=== PATIENT | male | born 1935 | race Caucasian/White ===

== ENCOUNTER 2017-02-28 16:32 | Inpatient (IN) | payer MEDICARE, OTHER ==
[~2017-02-28] VITALS: Ht 185.4 cm; Wt 87.3 kg
--- NOTE | 2017-02-28 16:38 | NUR ---
PT bib ra from home for fall and LEFT hip pain on blood thinNERS. GOWNED PT . AWAITING MD ORDERS.
[2017-02-28] MEDS ORDERED: MORPHINE SULFATE INJ 4 MG/ML DISP.SYRIN ONE ×3 (16:56→19:26)
[2017-02-28] MEDS ORDERED: ONDANSETRON HCL/PF 4 MG/2 ML VIAL ONE (16:56)
[2017-02-28] MEDS ORDERED: IV NS 0.9% 1,000 ML ONE (16:57)
[2017-02-28] MEDS ORDERED: IV SET PRIMARY 1 EA INFUS.SET MC ONE (16:57)
[2017-02-28] MEDS ORDERED: IV NS 0.9% 1,000 ML BAG IV ONE (17:00)
[2017-02-28] MEDS ORDERED: ONDANSETRON HCL/PF 4 MG/2 ML VIAL IVP ONE (17:00)
[2017-02-28] MEDS ORDERED: MORPHINE SULFATE INJ 2 MG/ML DISP.SYRIN IV ONE ×2 (17:00→19:30)
[2017-02-28 17:03] LABS: BASOPHILS # (AUTO) 0.3 /CMM (0.0-0.2); BASOPHILS % (AUTO) 2.8 % (0.0-2.0); EOSINOPHILS % (AUTO) 0.4 % (0.0-6.0); HEMATOCRIT 41 % (39-51); HEMOGLOBIN 13.8 g/dL (13.5-17.5); LYMPHOCYTES # (AUTO) 0.8 /CMM (0.8-4.8); LYMPHOCYTES % (AUTO) 7.1 % (20.0-44.0); MEAN CORPUSCULAR HEMOGLOBIN 36 PG (26.0-33.0); MEAN CORPUSCULAR HGB CONC 34 g/dl (31.0-36.0); MEAN CORPUSCULAR VOLUME 105 fL (80-96); MONOCYTES # (AUTO) 0.5 /CMM (0.1-1.30); MONOCYTES % (AUTO) 4.5 % (2.0-12.0); NEUTROPHILS # (AUTO) 10.2 /CMM (1.8-8.9); NEUTROPHILS % (AUTO) 85.2 % (43.0-81.0); PLATELET COUNT (AUTO) 166 /CMM (150-450); RDW COEFFICIENT OF VARIATION 13.3 (11.5-15.0); RED BLOOD CELL COUNT(AUTO) 3.87 MIL/uL (4.5-6.0); WHITE BLOOD COUNT (AUTO) 11.8 K/uL (4.3-11.0)
[2017-02-28] MEDS ORDERED: ASPI1CPM PO (17:09)
[2017-02-28] MEDS ORDERED: SIMV20TA6 PO (17:09)
[2017-02-28] MEDS ORDERED: LEVO200T8 PO (17:09)
[2017-02-28] MEDS ORDERED: VIT1CAPS44 PO (17:11)
[2017-02-28 17:13] LABS: CALCIUM, SERUM 8.6 mg/dL (8.5-10.1); CARBON DIOXIDE 24 mmol/L (21-32); CHLORIDE 105 mmol/L (98-107); CREATININE 1.4 mg/dL (0.6-1.3); GLUCOSE 106 mg/dL (74-106); POTASSIUM 4.3 mmol/L (3.5-5.1); SODIUM SERUM 140 mmol/L (136-145); UREA NITROGEN, BLOOD 24 mg/dL (7-18)
--- NOTE | 2017-02-28 17:13 | NUR ---
PT HAS LAC #16 IV ACCESS ENVELOPE FOLDER. BLOOD SAMPLE COLLECTED SENT TO LAB
--- NOTE | 2017-02-28 17:14 | NUR ---
RN LABOR DELIVERY AT BEDSIDE
[2017-02-28 17:24] LABS: INR 1.6 (0.87-1.13); PROTHROMBIN TIME 17.1 SECS (9.5-12.7)
[2017-02-28] MEDS ORDERED: MORPHINE SULFATE INJ 10 MG/ML DISP.SYRIN IV ONE (18:00)
--- NOTE | 2017-02-28 18:00 | NUR ---
PT TAKEN TO CT VIA GENA
--- NOTE | 2017-02-28 19:10 | NUR ---
PT REPORT RECIVED FROM STEPHANIE MCCOY, PT IN IN BED, PT FAMILY MEMEBRS AT BEDSIDE, PT ON MONITOR, WILL CONTINUE TO MONITOR.
--- NOTE | 2017-02-28 19:12 | NUR ---
CALLED [facility] NEPHROLOGY CLOTH REELER DR. BERNABE WAS PAGED.
--- NOTE | 2017-02-28 19:17 | NUR ---
GAVE REPORT TO [facility] FOR POOL
--- NOTE | 2017-02-28 19:25 | NUR ---
CALLED ORTHO DOCTOR CLINICAL TRAINING COORDINATOR VILLA NATARAJAN WAS PAGED.
[2017-02-28 21:00] VITALS: BP 144/87
[2017-02-28] MEDS ORDERED: IV NS 0.9% 1,000 ML IV PRN (21:00)
[2017-02-28] MEDS: HEPARIN SODIUM, PORCINE 5000 UNITS/1 ML VIAL SQ SCH (21:00)
[2017-02-28] MEDS ORDERED: ACETAMINOPHEN 325 MG TABLET PO PRN (21:00)
[2017-02-28] MEDS ORDERED: ONDANSETRON HCL/PF 4 MG/2 ML VIAL IV PRN (21:00)
--- NOTE | 2017-02-28 21:00 | NUR ---
MS RN NOTES RECEIVED PT FROM ER, IN STABLE CONDITION. A/O X 4, VERBALLY RESPONSIVE. AT BED SIDE. NO DISTRESS, NO SOB NOTED. IV SITE ON LAC INTACT AND PATENT, NO S/S OF INFILTRATION NOTED. ABDOMEN IS SOFT AND NON DISTENDED. BODY ASSESSMENT DONE, DENIES ANY PAIN OR DISCOMFORT AT THIS TIME. ALL NEEDS ATTENDED AND MET. KEPT COMFORTABLE. CALL LIGHT WITHIN WITHIN REACH. WILL CONT TO MONITOR.
[2017-02-28] MEDS ORDERED: IV SET PRIMARY PUMP SET 1 EA INFUS.SET MC ONE (21:42)
--- NOTE | 2017-03-01 06:40 | NUR ---
MS RN NOTES PT IN BED, RESTING COMFORTABLY AT THIS TIME. AROUSES EASILY. A/O X 4, VERBALLY RESPONSIVE. NO DISTRESS, NO SOB NOTED. IV SITE ON LAC INTACT AND PATENT, NO S/S OF INFILTRATION NOTED. ABDOMEN IS SOFT AND NON DISTENDED. PT IS CONTINENT , ABLE TO URINATE IN THE URINAL WITHOUT DIFFICULTY. DENIES ANY PAIN OR DISCOMFORT AT THIS TIME. ALL NEEDS ATTENDED AND MET. KEPT COMFORTABLE. CALL LIGHT WITHIN WITHIN REACH. WILL ENDORSE TO NEXT SHIFT FOR POOL.
[2017-03-01 07:26] LABS: BASOPHILS % (AUTO) 0.1 % (0.0-2.0); EOSINOPHILS % (AUTO) 0.1 % (0.0-6.0); HEMATOCRIT 37 % (39-51); HEMOGLOBIN 12.8 g/dL (13.5-17.5); LYMPHOCYTES # (AUTO) 0.9 /CMM (0.8-4.8); LYMPHOCYTES % (AUTO) 9.8 % (20.0-44.0); MEAN CORPUSCULAR HEMOGLOBIN 36 PG (26.0-33.0); MEAN CORPUSCULAR HGB CONC 34 g/dl (31.0-36.0); MEAN CORPUSCULAR VOLUME 105 fL (80-96); MONOCYTES # (AUTO) 0.4 /CMM (0.1-1.30); MONOCYTES % (AUTO) 4.4 % (2.0-12.0); NEUTROPHILS # (AUTO) 8.2 /CMM (1.8-8.9); NEUTROPHILS % (AUTO) 85.6 % (43.0-81.0); PLATELET COUNT (AUTO) 126 /CMM (150-450); RDW COEFFICIENT OF VARIATION 14.2 (11.5-15.0); RED BLOOD CELL COUNT(AUTO) 3.54 MIL/uL (4.5-6.0); WHITE BLOOD COUNT (AUTO) 9.6 K/uL (4.3-11.0)
[2017-03-01 08:00] VITALS: BP 129/63
--- NOTE | 2017-03-01 08:00 | NUR ---
m/s stave cutting supervisor: initial assessment received pt in bed awake, a/ox4. no c/o pain or any discomfort at this time. pt unable to move from side to side due to pain and unable to assess pt's back side. instructed to call for assistance. no apparent distress noted. will continue to monitor.
[2017-03-01 08:16] LABS: CARBON DIOXIDE 24 mmol/L (21-32); CHLORIDE 107 mmol/L (98-107); CREATININE 1.6 mg/dL (0.6-1.3); GLUCOSE 109 mg/dL (74-106); MAGNESIUM 1.9 mg/dL (1.8-2.4); PHOSPHORUS 4.8 mg/dL (2.5-4.9); POTASSIUM 4.3 mmol/L (3.5-5.1); SODIUM SERUM 142 mmol/L (136-145); UREA NITROGEN, BLOOD 32 mg/dL (7-18)
[2017-03-01] MEDS: HEPARIN SODIUM, PORCINE 5000 UNITS/1 ML VIAL SQ SCH ×2 (08:17→21:33)
[2017-03-01] MEDS: MORPHINE SULFATE INJ 2 MG/ML DISP.SYRIN IV PRN ×2 (11:46→23:27)
--- NOTE | 2017-03-01 11:46 | NUR ---
m/s inspector ball points: notes c/o 06/11 left hip pain, medicated with morphine 2mg ivp given by rn. family remains at bedside. will continue to monitor.
--- NOTE | 2017-03-01 12:16 | NUR ---
m/s terminal press operator: notes pt verbalized relief of pain. family remains at bedside. pt having lunch. instructed to call for assistance. will continue to monitor.
[2017-03-01] MEDS: LEVOTHYROXINE SODIUM 100 MCG TABLET PO SCH (12:41)
[2017-03-01] MEDS: MULTIVITAMIN/LUTEIN/MINERALS 1 TAB PO SCH (12:41)
--- NOTE | 2017-03-01 14:30 | NUR ---
m/s quality control assistant: md visit seen and examined by dr. kaiser with orders. orders acknowledged. informed md pt is already on heparin sq already with order to d'c lovenox. order carried out and acknowledged.
[2017-03-01] MEDS ORDERED: ENOXAPARIN SODIUM 30 MG/0.3 ML DISP.SYRIN SQ SCH (14:31)
--- NOTE | 2017-03-01 14:37 | NUR ---
m/s arbor press operator: ortho consult tj carranza) at bedside examining pt at this time.
--- NOTE | 2017-03-01 15:15 | NUR ---
m/s grain operations manager: notes received order for nwb to ble. pt made aware and verbalized understanding. instructed to call for assistance. will continue to monitor.
[2017-03-01 16:00] VITALS: BP 92/47
[2017-03-01] MEDS: HYDROCODONE/APAP 5/325MG 1 EACH TABLET PO PRN (18:07)
--- NOTE | 2017-03-01 18:07 | NUR ---
m/s athletic coordinator: notes c/o 03/11 left hip pain, medicated with norco 5-325mg po as ordered. at bedside. instructed to call for assistance. will monitor.
--- NOTE | 2017-03-01 18:40 | NUR ---
m/s skein spooler: notes pt sounds asleep at this time with at bedside. needs attended. no apparent distress noted. will continue to monitor.
--- NOTE | 2017-03-01 19:30 | NUR ---
MS RN NOTES PT STABLE AT THIS TIME, NO DISTRESS, NO SOB AT THIS TIME. CALL LIGHT WITHIN REACH. WILL CONT TO MONITOR. CALL LIGHT WITHIN REACH.
--- NOTE | 2017-03-01 19:30 | NUR ---
MS RN NOTES RECEIVED PT IN BED. AWAKE, WATCHING TV AT THIS TIME. A/O X 4. VERBALLY RESPONSIVE. AT BED SIDE. IV SITE ON LAC INTACT AND PATENT, IVF INFUSING WELL. PT WITH NO S/S OF BLEEDING AT THIS TIME. DENIES ANY PAIN OR DISCOMFORT. ABLE TO URINATE FREELY WITH YELLOW URINE. ALL NEEDS ATTENDED AND MET . KEPT COMFORTABLE. CALL LIGHT WITHIN REACH. WILL CONT TO MONITOR.
[2017-03-01 20:00] VITALS: BP 106/53
[2017-03-01] MEDS: IV NS 0.9% 1,000 ML IV PRN (21:31)
[2017-03-01] MEDS: SIMVASTATIN 20 MG TABLET PO SCH (21:31)
[2017-03-01 22:00] VITALS: BP 106/53
[2017-03-02] MEDS: MORPHINE SULFATE INJ 2 MG/ML DISP.SYRIN IV PRN ×2 (06:12→15:50)
--- NOTE | 2017-03-02 07:30 | NUR ---
MS RN NOTES PT IN BED. AWAKE. A/O X 4. VERBALLY RESPONSIVE. NO DISTRESS, NO SOB NOTED. IV SITE ON LAC INTACT AND PATENT, IVF INFUSING WELL. PT WITH NO S/S OF BLEEDING AT THIS TIME. DENIES ANY PAIN OR DISCOMFORT. ABLE TO URINATE FREELY WITH YELLOW URINE. ALL NEEDS ATTENDED AND MET . KEPT COMFORTABLE. SAFETY PRECAUTIONS OBSERVED. CALL LIGHT WITHIN REACH. ENDORSED TO NEXT SHIFT FOR POOL.
--- NOTE | 2017-03-02 07:40 | NUR ---
RECEIVED PT. ALERT AND ORIENTED X4,[place],NO COMPLAINTS OFFERED.
[2017-03-02 08:00] VITALS: BP 131/66
[2017-03-02 08:15] LABS: BASOPHILS % (AUTO) 0.2 % (0.0-2.0); EOSINOPHILS # (AUTO) 0.2 /CMM (0.0-0.7); EOSINOPHILS % (AUTO) 1.6 % (0.0-6.0); HEMATOCRIT 36 % (39-51); HEMOGLOBIN 12.2 g/dL (13.5-17.5); LYMPHOCYTES # (AUTO) 1.1 /CMM (0.8-4.8); LYMPHOCYTES % (AUTO) 11.4 % (20.0-44.0); MEAN CORPUSCULAR HEMOGLOBIN 36 PG (26.0-33.0); MEAN CORPUSCULAR HGB CONC 34 g/dl (31.0-36.0); MEAN CORPUSCULAR VOLUME 107 fL (80-96); MONOCYTES # (AUTO) 0.6 /CMM (0.1-1.30); MONOCYTES % (AUTO) 6.4 % (2.0-12.0); NEUTROPHILS # (AUTO) 7.9 /CMM (1.8-8.9); NEUTROPHILS % (AUTO) 80.4 % (43.0-81.0); PLATELET COUNT (AUTO) 106 /CMM (150-450); RDW COEFFICIENT OF VARIATION 14.6 (11.5-15.0); RED BLOOD CELL COUNT(AUTO) 3.41 MIL/uL (4.5-6.0); WHITE BLOOD COUNT (AUTO) 9.8 K/uL (4.3-11.0)
[2017-03-02 08:30] LABS: CALCIUM, SERUM 7.9 mg/dL (8.5-10.1); CARBON DIOXIDE 25 mmol/L (21-32); CHLORIDE 105 mmol/L (98-107); CREATININE 1.3 mg/dL (0.6-1.3); GLUCOSE 104 mg/dL (74-106); MAGNESIUM 1.9 mg/dL (1.8-2.4); PHOSPHORUS 2.3 mg/dL (2.5-4.9); POTASSIUM 3.8 mmol/L (3.5-5.1); SODIUM SERUM 140 mmol/L (136-145); UREA NITROGEN, BLOOD 29 mg/dL (7-18)
[2017-03-02] MEDS: MULTIVITAMIN/LUTEIN/MINERALS 1 TAB PO SCH (08:55)
[2017-03-02] MEDS: LEVOTHYROXINE SODIUM 100 MCG TABLET PO SCH (08:55)
[2017-03-02] MEDS: HEPARIN SODIUM, PORCINE 5000 UNITS/1 ML VIAL SQ SCH ×2 (08:57→21:19)
--- NOTE | 2017-03-02 10:30 | NUR ---
FAMILY IN TO VISIT.
[2017-03-02] MEDS: HYDROCODONE/APAP 5/325MG 1 EACH TABLET PO PRN ×2 (11:33→21:30)
--- NOTE | 2017-03-02 12:30 | NUR ---
IV LEAKING,REMOVED,RESTARTED LT. FOREARM.
[2017-03-02 16:00] VITALS: BP 142/80
[2017-03-02] MEDS ORDERED: K PHOS NEUTRAL 250 MG TABLET PO ONE (16:00)
--- NOTE | 2017-03-02 16:30 | NUR ---
FAMILY CALLING IN TO CHECK ON PT.
--- NOTE | 2017-03-02 18:26 | NUR ---
MEDICATED X 2 FOR PAIN WITH NORCO AND MORPHINE WITH GOOD EFFECT.
--- NOTE | 2017-03-02 19:45 | NUR ---
PT IS IN BED A/O X3. NO SIGNS OF SOB OR DISTRESS. IV ACCESS ON LEFT FOREARM, PATENT AND INTACT. CALL LIGHT WITHIN REACH. WILL CONTINUE TO MONITOR PT
[2017-03-02 20:00] VITALS: BP 154/65
--- NOTE | 2017-03-02 20:00 | NUR ---
MS RN TEMP PT TEMP 100.0 COOLING MEASURES WERE INITIATED. BLANKETS WERE REMOVED, ICE PACKS WERE PLACED UNDER THE ARMS
--- NOTE | 2017-03-02 21:00 | NUR ---
PT REFUSED IV FLUIDS. EDUCATED ON THE IMPORTANCE AND PT STILL REFUSED. WILL CONTINUE TO MONITOR
--- NOTE | 2017-03-02 21:00 | NUR ---
RN TEMP TEMP IS NOW 98.0 WILL CONTINUE TO MONITOR PT
[2017-03-02] MEDS: SIMVASTATIN 20 MG TABLET PO SCH (21:19)
[2017-03-02] MEDS ORDERED: ropiniROLE 0.5 MG TABLET PO SCH (22:00)
[2017-03-02 22:30] VITALS: BP 154/65
--- NOTE | 2017-03-03 06:37 | NUR ---
MS RN CLOSING NOTES PATIENT IN BED, NO APPARENT DISTRESS NOTED. ALL DUE MEDS GIVEN. NEEDS ALL ATTENDED, ANTICIPATED AND MET. ENDORSED TO DAY SHIFT.
[2017-03-03] MEDS: HYDROCODONE/APAP 5/325MG 1 EACH TABLET PO PRN ×2 (06:59→16:07)
--- NOTE | 2017-03-03 07:37 | NUR ---
RN OPEN NOTES RECEIVED REPORT FROM HEATING EQUIPMENT REPAIRER NURSE. PATIENT IS IN BED. ALERT AND ORIENTED TO NAME, PLACE AND TIME. NO SIGNS AND SYMPTOMS OF DISTRESS. PAIN LEVEL 5/10, NORCO ADMINISTERED BY HEATING EQUIPMENT REPAIRER NURSE AT 0640. BED IN LOW POSITION, LOCKED AND TWO SIDES RAIL ARE UP. WILL CONTINUE TO MONITOR AND ASSESS PATIENT THROUGH OUT MY SHIFT
[2017-03-03 08:00] VITALS: BP 116/65
[2017-03-03] MEDS ORDERED: ROPI0.5T PO (08:07)
[2017-03-03] MEDS ORDERED: HYDR-3326 PO (08:07)
[2017-03-03] MEDS ORDERED: HEPA50008 SQ (08:07)
[2017-03-03] MEDS: LEVOTHYROXINE SODIUM 100 MCG TABLET PO SCH (08:14)
[2017-03-03] MEDS: MULTIVITAMIN/LUTEIN/MINERALS 1 TAB PO SCH (08:14)
[2017-03-03] MEDS: IV NS 0.9% 1,000 ML IV PRN (08:14)
[2017-03-03 08:15] LABS: CALCIUM, SERUM 8.2 mg/dL (8.5-10.1); CARBON DIOXIDE 24 mmol/L (21-32); CHLORIDE 102 mmol/L (98-107); GLUCOSE 109 mg/dL (74-106); PHOSPHORUS 3.1 mg/dL (2.5-4.9); POTASSIUM 3.5 mmol/L (3.5-5.1); SODIUM SERUM 138 mmol/L (136-145); UREA NITROGEN, BLOOD 15 mg/dL (7-18)
[2017-03-03] MEDS: HEPARIN SODIUM, PORCINE 5000 UNITS/1 ML VIAL SQ SCH (08:15)
--- NOTE | 2017-03-03 16:15 | NUR ---
CHEMICAL PLANT WORKER NOTES PATIENT DISCHARGE ORDERS RECEIVED AND BOB OUT. PATIENT IS BEING DISCHARGED IN A STABLE CONDITION. NO SIGNS AND SYMPTOMS OF DISTRESS. DISCHARGE INSTRUCTIONS GAVE TO PATIENT AND HIS . PATIENT AND VERBALIZED UNDERSTANDING. IV SITE REMOVED. ID BAND REMOVED. PATIENT WAS TRANSPORTED TO A [facility] FACILITY, [facility], VIA AMBULANCE MEDS RESPONDE. CALLED [facility] AND GAVE REPORT TO DARIUS ALVAREZ WHOM WILL ACCEPT THE PATIENT AT THE FACILITY.
[2017-03-06 11:12] LABS: CALCITRIOL VIT D,1, 25 DIHYDRO 44.2 pg/mL (19.9-79.3)
== END 2017-03-03 16:30 | DRG 535 ==
LOC: ER 16:33 → MED 20:57
PROVIDERS: ADMIT Internal Medicine Nephrology; ATTEND Internal Medicine Nephrology
DX: S32.445A Nondisplaced fracture of posterior column [ilioischial] of left acetabulum, initial encounter for closed fracture (principal); N17.0 Acute kidney failure with tubular necrosis; R04.2 Hemoptysis; S32.592A Other specified fracture of left pubis, initial encounter for closed fracture; S32.049A Unspecified fracture of fourth lumbar vertebra, initial encounter for closed fracture; S32.435A Nondisplaced fracture of anterior column [iliopubic] of left acetabulum, initial encounter for closed fracture; S32.472A Displaced fracture of medial wall of left acetabulum, initial encounter for closed fracture; X58.XXXA Exposure to other specified factors, initial encounter; Y93.89 Activity, other specified; Y92.89 Other specified places as the place of occurrence of the external cause; Y99.9 Unspecified external cause status; E03.9 Hypothyroidism, unspecified; E86.0 Dehydration; Z86.73 Personal history of transient ischemic attack (TIA), and cerebral infarction without residual deficits; W18.30XA Fall on same level, unspecified, initial encounter; S30.0XXA Contusion of lower back and pelvis, initial encounter; M51.36 Other intervertebral disc degeneration, lumbar region; M16.0 Bilateral primary osteoarthritis of hip; Z79.899 Other long term (current) drug therapy; C61 Malignant neoplasm of prostate
CPT/HCPCS: 36415; 71010-TC; 71250-TC; 72192-TC; 73502; 80048-TC; 82306; 82652; 83735-TC; 83970; 84100-TC; 85025-TC; 85730-TC; 87081-TC; 97001-TC; A4606; J1644; J2270; J2405; J7030; Z7610

== ENCOUNTER 2017-03-15 23:03 | Inpatient (IN) | payer MEDICARE, OTHER ==
[~2017-03-15] VITALS: Ht 177.8 cm; Wt 85.4 kg
[~2017-03-15 23:03] MED LIST: ASPI1CPM PO; HEPA50008 SQ; HYDR-3326 PO; LEVO200T8 PO; ROPI0.5T PO; SIMV20TA6 PO; VIT1CAPS44 PO
--- NOTE | 2017-03-15 23:10 | NUR ---
to bed 3 bib [facility] ambulance c/o constipation x3 days. pt aaox4 no acute distress noted, resp even and unlabored. pt family members at bedside. pending er md godinez.
--- NOTE | 2017-03-15 23:29 | NUR ---
BALDEMARB xray done.
--- NOTE | 2017-03-16 00:01 | NUR ---
MAYURI result received. mahamed vidal aware.
--- NOTE | 2017-03-16 00:03 | NUR ---
er md at bedside to re-eval pt. pt resting comfortably, no acute distress noted, resp even and unlabored.
[2017-03-16 00:17] LABS: BASOPHILS % (AUTO) 0.1 % (0.0-2.0); HEMATOCRIT 33 % (39-51); HEMOGLOBIN 11.2 g/dL (13.5-17.5); LYMPHOCYTES # (AUTO) 0.8 /CMM (0.8-4.8); LYMPHOCYTES % (AUTO) 5.7 % (20.0-44.0); MEAN CORPUSCULAR HEMOGLOBIN 35 PG (26.0-33.0); MEAN CORPUSCULAR HGB CONC 34 g/dl (31.0-36.0); MEAN CORPUSCULAR VOLUME 104 fL (80-96); MONOCYTES # (AUTO) 0.7 /CMM (0.1-1.30); MONOCYTES % (AUTO) 4.7 % (2.0-12.0); NEUTROPHILS # (AUTO) 12.7 /CMM (1.8-8.9); NEUTROPHILS % (AUTO) 89.5 % (43.0-81.0); PLATELET COUNT (AUTO) 295 /CMM (150-450); WHITE BLOOD COUNT (AUTO) 14.2 K/uL (4.3-11.0)
[2017-03-16] MEDS ORDERED: ERGO400C PO (00:17)
[2017-03-16] MEDS ORDERED: HYDR-3326 PO (00:17)
[2017-03-16] MEDS ORDERED: PROT946L PO (00:17)
[2017-03-16] MEDS ORDERED: WHEA1POW6 PO (00:17)
[2017-03-16] MEDS ORDERED: IV SET PRIMARY 1 EA INFUS.SET MC ONE ×2 (00:18→01:18)
[2017-03-16] MEDS ORDERED: IV NS 0.9% 1,000 ML ONE ×2 (00:18→01:18)
[2017-03-16 00:27] LABS: CALCIUM, SERUM 8.2 mg/dL (8.5-10.1); CARBON DIOXIDE 21 mmol/L (21-32); CHLORIDE 98 mmol/L (98-107); CREATININE 2.3 mg/dL (0.6-1.3); GLUCOSE 135 mg/dL (74-106); POTASSIUM 5.3 mmol/L (3.5-5.1); SODIUM SERUM 131 mmol/L (136-145); UREA NITROGEN, BLOOD 51 mg/dL (7-18)
[2017-03-16] MEDS ORDERED: IV NS 0.9% 1,000 ML BAG IV ONE ×2 (00:30→01:30)
[2017-03-16 00:32] LABS: PROTHROMBIN TIME 10.7 SECS (9.5-12.7)
[2017-03-16 00:33] LABS: ALANINE AMINOTRANSFERASE 31 U/L (12-78); ALBUMIN 2.7 g/dL (3.4-5.0); ALKALINE PHOSPHATASE 160 U/L (46-116); ASPARTATE AMINOTRANSFERASE 28 U/L (15-37); BILIRUBIN,DIRECT 0.1 mg/dL (0.0-0.2); BILIRUBIN,TOTAL 0.6 mg/dL (0.2-1.0); LIPASE 129 U/L (73-393); TOTAL PROTEIN, SERUM 7.2 g/dL (6.4-8.2)
[2017-03-16 00:37] LABS: TROPONIN I 1.844 ng/mL (0.00-0.056)
--- NOTE | 2017-03-16 01:06 | NUR ---
pt back from radiology for ct abd/pelvis/ pending ct result.
--- NOTE | 2017-03-16 01:39 | NUR ---
pt still unable to provide urine sample at this time. pt states "give me half hour and i will try to give you urine". mahamed vidal made aware.
--- NOTE | 2017-03-16 01:56 | NUR ---
BED 109
[2017-03-16] MEDS ORDERED: LIDOCAINE 2% JEL UROJET 10 ML MM ONE ×2 (02:16→03:30)
--- NOTE | 2017-03-16 02:45 | NUR ---
16FR YBARRA CATHETER INSERTED USING STERILE TECHNIQUE. OUTPUT 2400ML. JOSE COLOR. URINE SAMPLE COLLECTED AND SENT TO LAB.
[2017-03-16] MEDS ORDERED: ASPIRIN 325 MG TABLET PO ONE (03:00)
[2017-03-16 03:05] LABS: BILIRUBIN,URINE NEGATIVE (NEGATIVE); BLOOD, URINE 2+ Ery/uL (NEGATIVE); COLOR,URINE YELLOW (YELLOW); KETONES,URINE NEGATIVE (NEGATIVE); LEUKOCYTE ESTERASE ,URINE TRACE (NEGATIVE); NITRITE, URINE NEGATIVE (NEGATIVE); PROTEIN,URINE NEGATIVE (NEGATIVE); UGLUCOSE NEGATIVE (NEGATIVE); UROBILINOGEN,URINE 0.2 EU/dL (0.2)
[2017-03-16 03:09] LABS: APPEARANCE,URINE HAZY (CLEAR)
[2017-03-16 03:14] LABS: BACTERIA,URINE None seen /HPF (None Seen); SQUAMOUS EPITHELIAL CELL,UR Rare /HPF (None Seen); WBC,URINE 25-30 /HPF (0-3)
--- NOTE | 2017-03-16 03:18 | NUR ---
DR. MEEKS PAGED PER ER ORDER.
[2017-03-16] MEDS ORDERED: DOCUSATE SODIUM 250 MG CAPSULE PO SCH (03:30)
[2017-03-16] MEDS ORDERED: ASPIRIN 325 MG TABLET ONE (03:34)
[2017-03-16] MEDS ORDERED: DOCUSATE SODIUM LIQ 100 MG/10 ML UDC ONE (03:34)
--- NOTE | 2017-03-16 03:35 | NUR ---
REPORT CALLED TO TELE 1 RN FRANCISCO. PENDING HOSPITAL ADMISSION.
[2017-03-16 04:00] VITALS: BP 99/54
--- NOTE | 2017-03-16 05:15 | NUR ---
DR MEEKS PAGED FOR THE ADMISSION ORDERS
--- NOTE | 2017-03-16 06:29 | NUR ---
RN NOTES: CALLED DR. MEEKS @ [facility] [phone] FOR ADMISSION ORDERS, SPOKE WITH MYRON. TO PAGE DOCTOR AGAIN. WAITING FOR CALL BACK
--- NOTE | 2017-03-16 06:54 | NUR ---
RN NOTES: CALLED DR MEEKS FOR THE THIRD TIME @0645, SPOKE WITH MEME HOLMAN MD. WAITING FOR RETURN CALL.
--- NOTE | 2017-03-16 07:00 | NUR ---
MIKI INITIAL NOTES RECEIVED PT IN BED, CONFUSED, ABLE TO FOLLOW COMMANDS, ANSWERS SIMPLE QUESTIONS, PT IS ON 2L NC, SATING 100%, NO S/S OF RESP.DISTRESS OR SOB NOTED AT THIS TIME, PT IS ON TELE MONITOR SHOWING SR W/PVC @70BPM, NO C/O CHEST PAIN OR DISCOMFORT AT THIS TIME, PT HAS F/C DRAINING YELLOW URINE TO GRAVITY, PT HAS R HAND #20G, SL, C/D/I/PATENT, FLUSHING WELL, NO S/S OF INFECTION/ INFILTRATION NOTED AT THIS TIME, DAUGHTER IS AT BEDSIDE, EXTREMELY NEEDY AND CONCERNED, PT IS CURRENTLY NPO AT THIS TIME, PT IS NON AMBULATORY D/T PELVIC FRACTURE PER DAUGHTER, ALL SAFETY MEASURES IN PLACE AT ALL TIMES, CALL LIGHT WITHIN EASY REACH, WILL MONITOR PT CLOSELY FOR CHANGES
--- NOTE | 2017-03-16 07:01 | NUR ---
ADMISSION NOTE; A 81 YRS MALE ADMITTED FROM ER WITH THE DX OF NON STEMI , A/O X 3 WITH PERIODS OF CONFUSION. BREATHING EVEN AND UNLABORED ON 2 LPM VIA NC. TELE MONITOR SHOWING SR WITH OCCASIONALLY PVCs HR 80 . RIGHT HAND PERIPHERAL IV 20 G INTACT AND PATENT . F/C INTACT AND DRAINING CLEAR URINE. MEDICAL HX PROVIDED BY PT AND HIS . BELONGINGS CHECKED . SKIN ASSESSMENT DONE, PHOTO TAKEN AND PLACED IN THE CHART . BM X 2 . AWAITING ADMISSION ORDER, PAGED X 3 . ENDORSED TO NEXT SHIFT RN FOR CONTINUITY OF CARE.
--- NOTE | 2017-03-16 07:42 | NUR ---
MIKI RN NOTES CALLED [facility] FOR ADMISSION ORDERS, PAGED DR. MEEKS, AWAITING FOR ADMISSION ORDERS.
[2017-03-16 08:00] VITALS: BP 100/49
--- NOTE | 2017-03-16 08:19 | NUR ---
MIKI NOTE DR. MEEKS RETURNED CALL, ORDERS INPUTTED AND ACK.
[2017-03-16] MEDS ORDERED: IV SET PRIMARY PUMP SET 1 EA INFUS.SET MC ONE ×2 (08:54→11:31)
[2017-03-16] MEDS: LEVOTHYROXINE SODIUM 100 MCG TABLET PO SCH (09:07)
[2017-03-16] MEDS: IV NS 0.9% 1,000 ML IV PRN ×2 (09:17→22:30)
[2017-03-16] MEDS ORDERED: HYDROCODONE/APAP 5/325MG 1 EACH TABLET PO PRN (09:30)
[2017-03-16] MEDS: CHOLECALCIFEROL (VITAMIN D 3) 400 UNIT TABLET PO SCH (09:30)
[2017-03-16] MEDS: PROSOURCE / PROSTAT (PYXIS) 30 ML UDC PO SCH (09:30)
[2017-03-16] MEDS ORDERED: AGGRENOX(ASA/DIPYRIDAMOLE) 1 CAP CPMP.12HR PO SCH (10:00)
[2017-03-16 10:25] LABS: MAGNESIUM 2.4 mg/dL (1.8-2.4); PHOSPHORUS 5.6 mg/dL (2.5-4.9)
[2017-03-16 12:00] VITALS: BP 98/56
[2017-03-16 12:23] LABS: THYROID STIMULATING HORMONE 8.351 uIU/mL (0.358-3.74)
[2017-03-16] MEDS: HEPARIN INFUSION/D5W 500 ML IV PRN (12:31)
[2017-03-16] MEDS: BENEFIBER 4 GM 1 EA PACKET PO SCH ×2 (12:31→21:23)
[2017-03-16] MEDS ORDERED: LEVALBUTEROL HCL NEB 1.25 MG/0.5 ML VIAL.NEB NEB PRN (15:00)
[2017-03-16] MEDS ORDERED: ALBUTEROL HALF STRENGTH 1.25 MG/3 ML VIAL.NEB NEB PRN (15:30)
--- NOTE | 2017-03-16 15:36 | NUR ---
MIKI NOTES AWARE OF TROP
[2017-03-16 16:00] VITALS: BP 95/50
[2017-03-16] MEDS ORDERED: SECONDARY IV SET 1 EA INFUS.SET MC ONE (16:34)
[2017-03-16] MEDS: CEFTRIAXONE 1 G in IV D5W 50 ML IV SCH (16:41)
--- NOTE | 2017-03-16 16:41 | NUR ---
MIKI NOTE MANUALLY ADMINISTERED MEDICATION, SCANNER IS BROKE, NOTIFIED IT
--- NOTE | 2017-03-16 18:47 | NUR ---
MIKI CLOSING NOTES PT REMAINED STABLE DURING SHIFT, ALL MEDICATIONS GIVEN, ALL ORDERS CARRIED OUT, PT KEPT CLEAN AND DRY, IV REMAINS C/D/I/PATENT, INFUSING HEPARIN @ 1302 UNITS/HR, NS @75ML/HR, F/C INTACT/PATENT DRAINING URINE WELL, ALL SAFETY MEASURES IN PLACE AT ALL TIMES, CALL LIGHT WITHIN EASY REACH, WILL GIVE REPORT TO PM RN FOR POOL
[2017-03-16 20:00] VITALS: BP 101/54
--- NOTE | 2017-03-16 20:00 | NUR ---
MIKI RN NOTE PT IN BED AWAKE. A/O X 2, CONFUSED AT TIMES. ON 2L VIA N/C O2 SAT 97%. NO SOB, NO DISTRESS OR DISCOMFORT NOTED. DENIES PAIN. ON TELE SR WITH PAC AND PVC HR 66. F/C INTACT AND PATENT DRAINING YELLOWISH COLOR URINE. NS @ 75 ML/HR INFUSING WELL, NO S/S OF INFILTRATION NOTED ON RT HAND. ALSO HEPARIN DRIP INFUSING AT 26.04 ML/HR RFA #20 G, NO S/S OF INFILTRATION NOTED. NO S/S OF ANY BLEEDING NOTED. PT WITH BRUISING NOTED BILATERAL HIPS. KEPT HIM HEEL OFFLOADED. SIDE RAILS UP X 3 AND CALL LIGHT WITHIN REACH. VSS. CONTINUE TO MONITOR HIM.
--- NOTE | 2017-03-16 20:03 | NUR ---
MIKI RN NOTE LAB [facility] CALLED AND INFORMED TROP LEVEL 1.573 WHICH IS TRENDING DOWN. CONTINUE TO MONITOR HIM.
[2017-03-16 20:08] LABS: INR 0.99 (0.87-1.13); PROTHROMBIN TIME 10.6 SECS (9.5-12.7)
--- NOTE | 2017-03-16 20:30 | NUR ---
MIKI RN NOTE PT WITH INR RESULT CAME BUT NO PTT. INFORMED LAB AND WAITING FOR PTT RESULT.
--- NOTE | 2017-03-16 20:56 | NUR ---
MIKI RN NOTE PTT RESULT CAME 47 PER PROTOCOL NO CHANGE IN DRIP. CONTINUE WITH 1302 HEPARIN UNITS /HR. CHARGE NURSE INFORMED.
[2017-03-16] MEDS ORDERED: HEPARIN SODIUM, PORCINE 5000 UNITS/1 ML VIAL SQ SCH (21:00)
[2017-03-16] MEDS: HYDROCODONE/APAP 5/325MG 1 EACH TABLET PO PRN (21:22)
[2017-03-16] MEDS: ropiniROLE 0.5 MG TABLET PO SCH (21:23)
[2017-03-16] MEDS: SIMVASTATIN 20 MG TABLET PO SCH (21:23)
--- NOTE | 2017-03-16 21:25 | NUR ---
MIKI RN NOTE PT C/O PAIN IN LT HIP AREA 04/11, NORCO 2 TABS PO GIVEN FOR PAIN, ALSO GIVEN DUE MEDS. IVF AND HEPARIN DRIP INFUSING WELL, NO S/S OF INFILTRATION NOTED.
--- NOTE | 2017-03-16 22:25 | NUR ---
MIKI RN NOTE PAIN SUBSIDED /. PT FALLING ASLEEP, IVF INFUSING WELL, NO S/S OF INFILTRATION NOTED. CONTINUE TO MONITOR HIM.
[2017-03-17] VITALS: BP 109/62
[2017-03-17 04:00] VITALS: BP 120/72
--- NOTE | 2017-03-17 06:39 | NUR ---
MIKI RN NOTE PT IN BED AWAKE. NO DISTRESS OR DISCOMFORT NOTED. DENIES PAIN. HEPARIN DRIP INFUSING WELL AND ALSO NS INFUSING WELL, NO S/S OF INFILTRATION NOTED. ON TELE SB WITH PAC AND PVC HR 53. F/C INTACT AND PATENT DRAINING YELLOWISH COLOR URINE. SIDE RAILS UP X 2 AND CALL LIGHT WITHIN REACH. WILL ENDORSE TO DAY SHIFT NURSE FOR CONTINUE TO CARE.
[2017-03-17 07:04] LABS: BASOPHILS % (AUTO) 0.3 % (0.0-2.0); EOSINOPHILS # (AUTO) 0.1 /CMM (0.0-0.7); EOSINOPHILS % (AUTO) 1.2 % (0.0-6.0); HEMATOCRIT 30 % (39-51); HEMOGLOBIN 10.2 g/dL (13.5-17.5); LYMPHOCYTES # (AUTO) 1.5 /CMM (0.8-4.8); LYMPHOCYTES % (AUTO) 15.1 % (20.0-44.0); MEAN CORPUSCULAR HEMOGLOBIN 36 PG (26.0-33.0); MEAN CORPUSCULAR HGB CONC 34 g/dl (31.0-36.0); MEAN CORPUSCULAR VOLUME 106 fL (80-96); MONOCYTES # (AUTO) 0.6 /CMM (0.1-1.30); MONOCYTES % (AUTO) 6.3 % (2.0-12.0); NEUTROPHILS # (AUTO) 7.9 /CMM (1.8-8.9); NEUTROPHILS % (AUTO) 77.1 % (43.0-81.0); PLATELET COUNT (AUTO) 230 /CMM (150-450); RDW COEFFICIENT OF VARIATION 14.3 (11.5-15.0); RED BLOOD CELL COUNT(AUTO) 2.86 MIL/uL (4.5-6.0); WHITE BLOOD COUNT (AUTO) 10.2 K/uL (4.3-11.0)
--- NOTE | 2017-03-17 07:15 | NUR ---
RN INITIAL NOTE PATIENT RECEIVED IN BED. PATIENT SLEEPING, EASILY AROUSED. ABLE TO MAKE NEEDS KNOWN. NO S/S OF PAIN OR DISCOMFORT. RESPIRATIONS ARE EVEN AND UNLABORED. NO S/S OF RESPIRATORY DISTRESS OR SOB. SINUS RHYTHM ON TELE MONITOR. HEART RATE IN THE 50'S. YBARRA CATHETER DRAINING TO GRAVITY. IV SITE FLUSHED AND PATENT. SKIN IS WARM AND DRY TO TOUCH. SAFETY PRECAUTIONS IMPLEMENTED. BED IN LOCKED, LOW POSITION WITH TWO SIDE RAILS UP. CALL LIGHT WITHIN EASY REACH. WILL CONTINUE TO MONITOR.
[2017-03-17 07:30] LABS: CALCIUM, SERUM 7.9 mg/dL (8.5-10.1); CARBON DIOXIDE 22 mmol/L (21-32); CHLORIDE 105 mmol/L (98-107); CREATININE 1.3 mg/dL (0.6-1.3); GLUCOSE 104 mg/dL (74-106); MAGNESIUM 2.1 mg/dL (1.8-2.4); PHOSPHORUS 3.4 mg/dL (2.5-4.9); POTASSIUM 4.1 mmol/L (3.5-5.1); SODIUM SERUM 137 mmol/L (136-145); UREA NITROGEN, BLOOD 33 mg/dL (7-18)
[2017-03-17] MEDS ORDERED: Z GUARD REMEDY 2 OZ OINT TP PRN (07:30)
[2017-03-17 07:41] LABS: CHOLESTEROL 125 mg/dL (<200); HDL CHOLESTEROL 35 mg/dL (40-60); LDL 80 mg/dL (0-99); THYROID STIMULATING HORMONE 10.195 uIU/mL (0.358-3.74); TRIGLYCERIDES 77 mg/dL (30-150)
[2017-03-17 08:00] VITALS: BP 123/74
[2017-03-17] MEDS: PROSOURCE / PROSTAT (PYXIS) 30 ML UDC PO SCH (08:01)
[2017-03-17] MEDS: ASPIRIN 325 MG TABLET PO SCH (08:01)
[2017-03-17] MEDS: MULTIVITAMIN/LUTEIN/MINERALS 1 TAB PO SCH (08:01)
[2017-03-17] MEDS: CHOLECALCIFEROL (VITAMIN D 3) 400 UNIT TABLET PO SCH (08:01)
[2017-03-17] MEDS: LEVOTHYROXINE SODIUM 100 MCG TABLET PO SCH (08:01)
[2017-03-17] MEDS: BENEFIBER 4 GM 1 EA PACKET PO SCH ×3 (08:01→20:46)
[2017-03-17] MEDS: HEPARIN INFUSION/D5W 500 ML IV PRN (08:04)
--- NOTE | 2017-03-17 09:45 | NUR ---
RN NOTE PATIENTS HEART RATE WILL GO DOWN TO LOW 40'S OCCASIONALLY. GENERALLY IN THE 50'S-60'S. DR GUTIERREZ INFORMED.
[2017-03-17 12:00] VITALS: BP 122/68
[2017-03-17] MEDS: NITROGLYCERIN 30 GM TUBE TP SCH ×2 (12:10→20:47)
[2017-03-17] MEDS ORDERED: LEVOTHYROXINE SODIUM 25 MCG TABLET PO SCH (13:30)
[2017-03-17] MEDS ORDERED: SECONDARY IV SET 1 EA INFUS.SET MC ONE (15:45)
[2017-03-17 16:00] VITALS: BP 118/66
[2017-03-17] MEDS: SOD FERRIC GLUC 125 MG in IV NS 0.9% 100 ML IV SCH (16:01)
[2017-03-17] MEDS: CEFTRIAXONE 1 G in IV D5W 50 ML IV SCH (18:09)
[2017-03-17 20:00] VITALS: BP 134/65
[2017-03-17] MEDS: TAMSULOSIN 0.4 MG CAP.SR.24H PO SCH (20:47)
[2017-03-17] MEDS: ropiniROLE 0.5 MG TABLET PO SCH (20:47)
[2017-03-17] MEDS: SIMVASTATIN 20 MG TABLET PO SCH (20:48)
[2017-03-17] MEDS: HYDROCODONE/APAP 5/325MG 1 EACH TABLET PO PRN (21:49)
[2017-03-18] VITALS: BP 135/64
[2017-03-18 04:00] VITALS: BP 139/76
[2017-03-18] MEDS: HEPARIN INFUSION/D5W 500 ML IV PRN (04:59)
[2017-03-18 06:53] LABS: BASOPHILS % (AUTO) 0.3 % (0.0-2.0); EOSINOPHILS # (AUTO) 0.2 /CMM (0.0-0.7); EOSINOPHILS % (AUTO) 1.8 % (0.0-6.0); HEMATOCRIT 31 % (39-51); HEMOGLOBIN 10.3 g/dL (13.5-17.5); LYMPHOCYTES # (AUTO) 1.2 /CMM (0.8-4.8); LYMPHOCYTES % (AUTO) 12.3 % (20.0-44.0); MEAN CORPUSCULAR HEMOGLOBIN 35 PG (26.0-33.0); MEAN CORPUSCULAR HGB CONC 34 g/dl (31.0-36.0); MEAN CORPUSCULAR VOLUME 104 fL (80-96); MONOCYTES # (AUTO) 0.5 /CMM (0.1-1.30); MONOCYTES % (AUTO) 4.8 % (2.0-12.0); NEUTROPHILS # (AUTO) 7.6 /CMM (1.8-8.9); NEUTROPHILS % (AUTO) 80.8 % (43.0-81.0); PLATELET COUNT (AUTO) 259 /CMM (150-450); RDW COEFFICIENT OF VARIATION 14.5 (11.5-15.0); RED BLOOD CELL COUNT(AUTO) 2.93 MIL/uL (4.5-6.0); WHITE BLOOD COUNT (AUTO) 9.5 K/uL (4.3-11.0)
[2017-03-18 06:56] LABS: PROTHROMBIN TIME 10.7 SECS (9.5-12.7)
[2017-03-18 07:12] LABS: ALANINE AMINOTRANSFERASE 33 U/L (12-78); ALBUMIN 2.3 g/dL (3.4-5.0); ALKALINE PHOSPHATASE 150 U/L (46-116); ASPARTATE AMINOTRANSFERASE 33 U/L (15-37); BILIRUBIN,TOTAL 0.6 mg/dL (0.2-1.0); CARBON DIOXIDE 27 mmol/L (21-32); CHLORIDE 102 mmol/L (98-107); GLUCOSE 93 mg/dL (74-106); MAGNESIUM 1.8 mg/dL (1.8-2.4); PHOSPHORUS 3.1 mg/dL (2.5-4.9); POTASSIUM 3.9 mmol/L (3.5-5.1); SODIUM SERUM 134 mmol/L (136-145); TOTAL PROTEIN, SERUM 6.5 g/dL (6.4-8.2); UREA NITROGEN, BLOOD 20 mg/dL (7-18)
[2017-03-18 08:00] VITALS: BP 137/73
--- NOTE | 2017-03-18 08:00 | NUR ---
GOLF COURSE DESIGNER; ASSESSMENT RECEIVED PT AWAKE AND ORIENTED X2-3, FORGETFUL. PT CURRENTLY ON HEPARIN DRIP 1302 UNITS/HR PTT REVIEWED RESULT 42 NO CHANGES TO DRIP ACCORDING TO PROTOCOL. YBARRA CATH INTACT DRAINING TO GRAVITY CLEAR YELLOW URINE. PT DENIES ANY PAIN AT THIS TIME. S.F WITH PELVIS FRACTURE (ABT ONE MONTH AGO). NO ACUTE DISTRESS NOTED WILL CONTINUE TO MONITOR.
[2017-03-18] MEDS: CHOLECALCIFEROL (VITAMIN D 3) 400 UNIT TABLET PO SCH (08:44)
[2017-03-18] MEDS: BENEFIBER 4 GM 1 EA PACKET PO SCH ×3 (08:44→21:33)
[2017-03-18] MEDS: LEVOTHYROXINE SODIUM 100 MCG TABLET PO SCH (08:44)
[2017-03-18] MEDS: MULTIVITAMIN/LUTEIN/MINERALS 1 TAB PO SCH (08:44)
[2017-03-18] MEDS: PROSOURCE / PROSTAT (PYXIS) 30 ML UDC PO SCH (08:44)
[2017-03-18] MEDS: ASPIRIN 325 MG TABLET PO SCH (08:44)
[2017-03-18] MEDS: NITROGLYCERIN 30 GM TUBE TP SCH ×2 (08:45→21:33)
[2017-03-18] MEDS: VALSARTAN 80 MG TABLET PO SCH (10:24)
[2017-03-18] MEDS: ENOXAPARIN SODIUM 40 MG/0.4 ML DISP.SYRIN SQ SCH (10:25)
[2017-03-18 12:00] VITALS: BP 129/66
--- NOTE | 2017-03-18 14:04 | NUR ---
WOUND CARE CONSULT: PT PRESENTS WITH BRUISING AND LEFT BUTTOCK DRY ABRASION WITH SCARRING, PRESENT ON ADMISSION. PT ON ATMOSAIR MATTRESS. PT ABLE TO ASSIST WITH TURNING AND REPOSITIONING IN BED. ALL SKIN PROTECTION MEASURES IN PLACE. DISCUSSED WITH NURSING STAFF. WILL SEE PRN. PARKER IN AGREEMENT WITH PLAN OF CARE. LYNN SCORE CURRENTLY 13. Addendum: 03/18/17 at 1406 by DOT NUÑEZ Amended: Links added. Addendum: 03/18/17 at 1410 by DOT NUÑEZ PT NOTED TO HAVE 3+ PITTING EDEMA TO LEFT HIP AND THIGH AREA.
[2017-03-18] MEDS: SOD FERRIC GLUC 125 MG in IV NS 0.9% 100 ML IV SCH (15:35)
--- NOTE | 2017-03-18 15:57 | NUR ---
DARIUS OHARA YBARRA CATH DISCONTINUED ORDERED,1550ML OUT URINAL GIVEN PLACED AT BEDSIDE. PT STATEDS THAT HE PREFERS DIAPER INSTEAD OF URINAL. WILL MONITOR FOR URINE OUTPUT
[2017-03-18 16:00] VITALS: BP 126/74
[2017-03-18] MEDS ORDERED: IV SET PRIMARY PUMP SET 1 EA INFUS.SET MC ONE (16:33)
[2017-03-18] MEDS: CEFTRIAXONE 1 G in IV D5W 50 ML IV SCH (16:38)
--- NOTE | 2017-03-18 19:40 | NUR ---
MS RN NOTE PT IN BED SEMIFOWLER, A/O X 3, FORGETFUL, NO SOB, NO DISTRESS OR DISCOMFORT NOTED. DENIES PAIN. NO OUT PUT NOTED SINCE F/C DC DURING THE DAY SHIFT. WILL CONTINUE TO ASSESS OUTPUT. REMINDED PT ABOUT NOT EATING AND DRINKING AFTER MIDNIGHT AND NO COFFEE FROM NOW ON. PT STATES "OK". VSS. REPOSITION HIM FOR COMFORT AND SKIN MANAGEMENT. SIDE RAILS UP X 2 AND CALL LIGHT WITHIN REACH. CONTINUE TO MONITOR HIM.
[2017-03-18 20:00] VITALS: BP 121/73
[2017-03-18] MEDS: SIMVASTATIN 20 MG TABLET PO SCH (21:33)
[2017-03-18] MEDS: ropiniROLE 0.5 MG TABLET PO SCH (21:33)
[2017-03-18] MEDS: TAMSULOSIN 0.4 MG CAP.SR.24H PO SCH (21:33)
[2017-03-18] MEDS: HYDROCODONE/APAP 5/325MG 1 EACH TABLET PO PRN (22:41)
[2017-03-19 04:00] VITALS: BP 156/72
[2017-03-19 06:21] LABS: BASOPHILS % (AUTO) 0.2 % (0.0-2.0); EOSINOPHILS # (AUTO) 0.2 /CMM (0.0-0.7); EOSINOPHILS % (AUTO) 2.9 % (0.0-6.0); HEMATOCRIT 34 % (39-51); HEMOGLOBIN 11.6 g/dL (13.5-17.5); LYMPHOCYTES % (AUTO) 12.5 % (20.0-44.0); MEAN CORPUSCULAR HEMOGLOBIN 35 PG (26.0-33.0); MEAN CORPUSCULAR HGB CONC 34 g/dl (31.0-36.0); MEAN CORPUSCULAR VOLUME 104 fL (80-96); MONOCYTES # (AUTO) 0.5 /CMM (0.1-1.30); MONOCYTES % (AUTO) 6.4 % (2.0-12.0); NEUTROPHILS # (AUTO) 6.5 /CMM (1.8-8.9); PLATELET COUNT (AUTO) 277 /CMM (150-450); RDW COEFFICIENT OF VARIATION 14.3 (11.5-15.0); WHITE BLOOD COUNT (AUTO) 8.4 K/uL (4.3-11.0)
--- NOTE | 2017-03-19 06:33 | NUR ---
MS RN NOTE PT IN BED ASLEEP, AROUSABLE. NO DISTRESS OR DISCOMFORT NOTED. NO S/S OF PAIN NOTED. H/L INTACT AND PATENT. PT VOIDED X 1. SIDE RAILS UP X 2 AND CALL LIGHT WITHIN REACH. WILL ENDORSE TO DAY SHIFT NURSE FOR CONTINUE TO CARE.
[2017-03-19 06:42] LABS: ALANINE AMINOTRANSFERASE 36 U/L (12-78); ALBUMIN 2.5 g/dL (3.4-5.0); ALKALINE PHOSPHATASE 163 U/L (46-116); ASPARTATE AMINOTRANSFERASE 29 U/L (15-37); BILIRUBIN,TOTAL 0.5 mg/dL (0.2-1.0); CALCIUM, SERUM 8.2 mg/dL (8.5-10.1); CARBON DIOXIDE 29 mmol/L (21-32); CHLORIDE 100 mmol/L (98-107); GLUCOSE 96 mg/dL (74-106); MAGNESIUM 1.7 mg/dL (1.8-2.4); PHOSPHORUS 3.3 mg/dL (2.5-4.9); POTASSIUM 3.6 mmol/L (3.5-5.1); SODIUM SERUM 134 mmol/L (136-145); TOTAL PROTEIN, SERUM 6.9 g/dL (6.4-8.2); UREA NITROGEN, BLOOD 15 mg/dL (7-18)
--- NOTE | 2017-03-19 07:45 | NUR ---
MS/RN - Initial Notes Received pt in bed awake, alert and oriented x2-3. No acute distress. Respirations are even and unlabored. Denies pain or discomfort. Pt noted with small soft brown bowel movement. Pt cleaned and repositioned. IV saline locked patent and intact. NPO at this time, for Lexiscan stress test today. Safety and comfort measures in place. Will continue to monitor pt closely.
[2017-03-19 08:00] VITALS: BP 97/76
[2017-03-19] MEDS ORDERED: SECONDARY IV SET 1 EA INFUS.SET MC ONE ×2 (08:01→10:36)
[2017-03-19] MEDS ORDERED: IV SET PRIMARY PUMP SET 1 EA INFUS.SET MC ONE (08:01)
[2017-03-19] MEDS ORDERED: IV NS 0.9% 250 ML IV ONE (08:01)
[2017-03-19] MEDS: VALSARTAN 80 MG TABLET PO SCH (09:00)
[2017-03-19] MEDS: NITROGLYCERIN 30 GM TUBE TP SCH ×2 (09:00→22:26)
[2017-03-19] MEDS ORDERED: REGADENOSON 0.4 MG/5 ML DISP.SYRIN IVP ONE (09:00)
--- NOTE | 2017-03-19 09:20 | NUR ---
MS/RN - Notes Pt taken to radiology for Lexiscan stress test.
[2017-03-19] MEDS: CHOLECALCIFEROL (VITAMIN D 3) 400 UNIT TABLET PO SCH (09:57)
[2017-03-19] MEDS: LEVOTHYROXINE SODIUM 100 MCG TABLET PO SCH (09:58)
[2017-03-19] MEDS: BENEFIBER 4 GM 1 EA PACKET PO SCH ×3 (09:58→22:26)
[2017-03-19] MEDS: PROSOURCE / PROSTAT (PYXIS) 30 ML UDC PO SCH (09:58)
[2017-03-19] MEDS: ASPIRIN 325 MG TABLET PO SCH (09:58)
[2017-03-19] MEDS: MULTIVITAMIN/LUTEIN/MINERALS 1 TAB PO SCH (09:58)
--- NOTE | 2017-03-19 10:00 | NUR ---
MS[facility]RN [facility] eating [facility]. AM medications given at this time.
[2017-03-19] MEDS: ENOXAPARIN SODIUM 40 MG/0.4 ML DISP.SYRIN SQ SCH (10:14)
[2017-03-19] MEDS: Magnesium 1GM/D5W 100ML PREMIX 100 ML IV SCH ×2 (10:22→12:03)
--- NOTE | 2017-03-19 10:30 | NUR ---
MS/RN - Notes Received call from pt's daughter Mariaelena, stating that pt has an arranged ortho appointment with Dr Faulkner today (by Ritaofelia Oliveros [facility]). Call made out to Dr Faulkner office, notifying that pt is in hospital and should be seen here while inpatient.
--- NOTE | 2017-03-19 11:06 | NUR ---
MS/RN - Notes Pt taken back to radiology for second session of Lexiscan stress test.
[2017-03-19] MEDS: SOD FERRIC GLUC 125 MG in IV NS 0.9% 100 ML IV SCH (14:38)
[2017-03-19 16:00] VITALS: BP 142/81
[2017-03-19] MEDS: CEFTRIAXONE 1 G in IV D5W 50 ML IV SCH (16:00)
--- NOTE | 2017-03-19 16:00 | NUR ---
MS/RN - Notes Family at bedside, updated on plan of care. All questions and concerns answered. Pt in no acute distress at this time.
--- NOTE | 2017-03-19 19:15 | NUR ---
RN INITIAL NOTES RECEIVED PATIENT AWAKE AND ALERT X3. ABLE TO MAKE NEEDS KNOWN. PATIENT DENIES ANY PAIN AND DISCOMFORT AT THIS TIME. ON 2LPM OF O2 VIA NC, RESPIRATION IS EVEN AND UNLABORED, NO SOB. NOT IN ANY ACUTE DISTRESS. NEEDS ANTICIPATED AND MET. SAFETY AND COMFORT ENSURED. BED IN LOW AND LOCKED POSITION. CALL LIGHT IN REACH. WILL MONITOR.
[2017-03-19 20:00] VITALS: BP 147/86
[2017-03-19] MEDS: TAMSULOSIN 0.4 MG CAP.SR.24H PO SCH (22:24)
[2017-03-19] MEDS: SIMVASTATIN 20 MG TABLET PO SCH (22:24)
[2017-03-19] MEDS: ropiniROLE 0.5 MG TABLET PO SCH (22:24)
[2017-03-19] MEDS: HYDROCODONE/APAP 5/325MG 1 EACH TABLET PO PRN (22:25)
--- NOTE | 2017-03-19 23:26 | NUR ---
RN NOTES PATIENT WAS MEDICATED WITH NORCO 5/325 2TABS PER PATIENT'S REQUEST FOR PAIN MANAGEMENT AND SLEEP AID FOR THE NIGHT. PATIENT IN BED, SLEEPING COMFORTABLY. NO DISTRESS. EASILY AROUSES WITH STIMULI. PATIENT'S NEEDS ANTICIPATED AND MET. SAFETY AND COMFORT ENSURED.
[2017-03-20 04:00] VITALS: BP 108/73
--- NOTE | 2017-03-20 06:31 | NUR ---
RN CLOSING NOTES PATIENT WITH NO ACUTE CHANGE IN CONDITION OBSERVED OVERNIGHT. PATIENT STABLE, NO DISTRESS. NO C/O PAIN AND DISCOMFORT. ABLE TO SLEEP COMFORTABLY OVERNIGHT. PATIENT'S NEEDS ANTICIPATED AND MET. SAFETY AND COMFORT ENSURED. BED IN LOW AND LOCKED POSITION. CALL LIGHT IN REACH. WILL ENDORSE ACCORDINGLY FOR CONTINUITY OF CARE.
[2017-03-20 06:54] LABS: BASOPHILS % (AUTO) 0.3 % (0.0-2.0); EOSINOPHILS # (AUTO) 0.3 /CMM (0.0-0.7); EOSINOPHILS % (AUTO) 3.5 % (0.0-6.0); HEMATOCRIT 35 % (39-51); HEMOGLOBIN 11.9 g/dL (13.5-17.5); LYMPHOCYTES # (AUTO) 1.1 /CMM (0.8-4.8); LYMPHOCYTES % (AUTO) 12.1 % (20.0-44.0); MEAN CORPUSCULAR HEMOGLOBIN 35 PG (26.0-33.0); MEAN CORPUSCULAR HGB CONC 34 g/dl (31.0-36.0); MEAN CORPUSCULAR VOLUME 104 fL (80-96); MONOCYTES # (AUTO) 0.8 /CMM (0.1-1.30); MONOCYTES % (AUTO) 8.3 % (2.0-12.0); NEUTROPHILS # (AUTO) 6.9 /CMM (1.8-8.9); NEUTROPHILS % (AUTO) 75.8 % (43.0-81.0); PLATELET COUNT (AUTO) 292 /CMM (150-450); RDW COEFFICIENT OF VARIATION 14.4 (11.5-15.0); RED BLOOD CELL COUNT(AUTO) 3.37 MIL/uL (4.5-6.0); WHITE BLOOD COUNT (AUTO) 9.1 K/uL (4.3-11.0)
[2017-03-20 07:19] LABS: ALANINE AMINOTRANSFERASE 31 U/L (12-78); ALBUMIN 2.6 g/dL (3.4-5.0); ALKALINE PHOSPHATASE 158 U/L (46-116); ASPARTATE AMINOTRANSFERASE 28 U/L (15-37); BILIRUBIN,TOTAL 0.4 mg/dL (0.2-1.0); CALCIUM, SERUM 8.3 mg/dL (8.5-10.1); CARBON DIOXIDE 28 mmol/L (21-32); CHLORIDE 100 mmol/L (98-107); GLUCOSE 98 mg/dL (74-106); MAGNESIUM 2.1 mg/dL (1.8-2.4); PHOSPHORUS 3.5 mg/dL (2.5-4.9); POTASSIUM 3.8 mmol/L (3.5-5.1); SODIUM SERUM 134 mmol/L (136-145); UREA NITROGEN, BLOOD 16 mg/dL (7-18)
--- NOTE | 2017-03-20 08:07 | NUR ---
RN INITIAL NOTES RECEIVED PATIENT AWAKE AND ALERT X3. ABLE TO MAKE NEEDS KNOWN. PATIENT DENIES ANY PAIN AND DISCOMFORT AT THIS TIME. ON 2LPM OF O2 VIA NC, RESPIRATION IS EVEN AND UNLABORED, NO SOB. NO ACUTE DISTRESS NOTED . SAFETY AND COMFORT ENSURED. BED IN LOW AND LOCKED POSITION. CALL LIGHT IN REACH. WILL MONITOR.
[2017-03-20] MEDS: CHOLECALCIFEROL (VITAMIN D 3) 400 UNIT TABLET PO SCH (09:00)
[2017-03-20] MEDS: MULTIVITAMIN/LUTEIN/MINERALS 1 TAB PO SCH (09:00)
[2017-03-20] MEDS: PROSOURCE / PROSTAT (PYXIS) 30 ML UDC PO SCH (10:21)
[2017-03-20] MEDS: LEVOTHYROXINE SODIUM 100 MCG TABLET PO SCH (10:21)
[2017-03-20] MEDS: VALSARTAN 80 MG TABLET PO SCH (10:22)
[2017-03-20] MEDS: ASPIRIN 325 MG TABLET PO SCH (10:22)
[2017-03-20] MEDS: BENEFIBER 4 GM 1 EA PACKET PO SCH ×2 (10:22→15:57)
[2017-03-20] MEDS: NITROGLYCERIN 30 GM TUBE TP SCH (10:23)
--- NOTE | 2017-03-20 10:36 | NUR ---
RN NOTE SOME OF THE PATIENT AM MEDICATION ARE NOT AVAILABLE AT THIS TIME PHARMACY CONTACTED THEY WILL DISPENSE MEDICATION MAGNO. RN ILL ADMINISTER SOON THEY ARE AVAILABLE
[2017-03-20] MEDS: ENOXAPARIN SODIUM 40 MG/0.4 ML DISP.SYRIN SQ SCH (11:29)
[2017-03-20 12:00] VITALS: BP 145/69
--- NOTE | 2017-03-20 13:37 | NUR ---
Rn note rn place a call to [facility] and spoke with the patients receiving tammie smith and gave a full report for the patient . receiving rn acknowledged understanding. rn provided return contact information if needed . rn will continue to follow.
--- NOTE | 2017-03-20 13:41 | NUR ---
RN NOTE Rn spoke with the patients daughter Kathy in regards, PATIENT F/U VISIT FOR AT DR. OSORIO . RN CONTACTED OFFICE TO SCHEDULE THE F/U APPOINTMENT BUT WAS NOTIFIED THAT THIS SERVICE NEEDED TO BE SCHEDULE BY MATHEW REINA . MATHEW YANG NOTIFIED AND NUMBER PROVIDED
[2017-03-20] MEDS: SOD FERRIC GLUC 125 MG in IV NS 0.9% 100 ML IV SCH (15:57)
--- NOTE | 2017-03-20 15:58 | NUR ---
RN NOTE PATIENT DISCHARGED REPORT CALLED AND GIVEN TO MATHEW REINA
== END 2017-03-20 16:04 | DRG 682 ==
LOC: ER 23:04 → TELE-TD 03-16 02:46 → TELE1 03-17 14:31 → MEDSG1 03-18 11:30
PROVIDERS: ADMIT Internal Medicine; ATTEND Internal Medicine
DX: N17.9 Acute kidney failure, unspecified (principal); I21.4 Non-ST elevation (NSTEMI) myocardial infarction; N39.0 Urinary tract infection, site not specified; E87.1 Hypo-osmolality and hyponatremia; E03.9 Hypothyroidism, unspecified; E87.5 Hyperkalemia; I11.9 Hypertensive heart disease without heart failure; I25.10 Atherosclerotic heart disease of native coronary artery without angina pectoris; J45.909 Unspecified asthma, uncomplicated; N13.9 Obstructive and reflux uropathy, unspecified; Z86.73 Personal history of transient ischemic attack (TIA), and cerebral infarction without residual deficits; R33.9 Retention of urine, unspecified; D64.9 Anemia, unspecified; N31.9 Neuromuscular dysfunction of bladder, unspecified; K59.03 Drug induced constipation; T40.605A Adverse effect of unspecified narcotics, initial encounter; Y92.129 Unspecified place in nursing home as the place of occurrence of the external cause
CPT/HCPCS: 36415; 71010-TC; 72128-TC; 74000-TC; 80048-TC; 80053-TC; 80061-TC; 80076-TC; 81000-TC; 82306; 82728-TC; 83540-TC; 83690-TC; 83735-TC; 84100-TC; 84439-TC; 84443-TC; 84484-TC; 85025-TC; 85610-TC; 85730-TC; 87081-TC; 87086-TC; 93307-TC; 94799-TC; 97001-TC; 97110-TC; 97530-TC; A4606; A6403; A9502; J0696; J1644; J1650; J2785; J2916; J3475; J3490; J7030; J7050; J7060; Z7610